=== PATIENT | male | born 1960 | race American Indian/Alaskan Native ===

== ENCOUNTER → 2018-07-29 08:07 | Outpatient (CLI) | payer OTHER, SELFPAY ==
[2018-07-29 09:13] LABS: Add Manual Diff / Slide Review NO; Basophils Percent Auto 0.6 % (0-2); Eosinophils Percent Auto 3.7 % (2-4); Hematocrit 44.8 % (41-53); Hemoglobin 15.4 g/dL (13.5-17.5); Lymphocytes Percent Auto 37.3 % (25-40); Mean Corpuscular HGB Conc 34.3 % (30-36); Mean Corpuscular Hemoglobin 31.7 PG (26-34); Mean Corpuscular Volume 92.3 fL (80-100); Monocytes Percent Auto 6.8 % (3-14); Neutrophils Absolute Auto 3300 /uL (3000-5900); Neutrophils Percent Auto 51.6 % (50-75); Platelet Count 278 X10^3/uL (150-400); Red Blood Cell Count 4.85 X10^6/uL (4.5-5.9); Red Cell Distribution Width 12.8 % (11.6-14.8); White Blood Cell Count 6.5 X10^3/uL (4.5-11.0)
[2018-07-29 09:15] LABS: Hemoglobin A1C% w Est Avg Glu 5.5 % (4.0-6.0)
[2018-07-29 09:21] LABS: Alanine Aminotransferase 46 IU/L (21-72); Albumin 4.3 g/dL (3.5-5.0); Albumin Globulin Ratio 1.9 (1.0-2.8); Alkaline Phosphatase 31 U/L (38-126); Aspartate Aminotransferase 37 IU/L (17-59); BUN Creatinine Ratio 21.3 (6-22); Bilirubin Total 1.1 mg/dL (0.2-1.3); Blood Urea Nitrogen 17 mg/dL (9-20); Calcium 9.2 mg/dL (8.4-10.2); Carbon Dioxide 31 mmol/L (22-32); Chloride 105 mmol/L (98-107); Cholesterol 148 mg/dL (140-199); Estimated Glomerular Filt Rate > 60.0 mL/min (>60); Globulin 2.3 g/dL (1.7-4.1); Glucose 113 mg/dL (70-100); HDL Cholesterol 42 mg/dL (40-60); HEMOLYSIS < 15 (0-50); LDL Cholesterol Calculated 75 mg/dL (<100); Potassium 4.9 mmol/L (3.4-5.1); Sodium 145 mmol/L (137-145); Total Protein 6.6 g/dL (6.3-8.2); Triglycerides 155 mg/dL (35-150)
[2018-07-29 09:48] LABS: Prostate Specific Antigen 0.409 ng/mL (0.10-4.00)
[2018-07-29 09:52] LABS: Thyroid Stimulating Hormone 0.87 uIU/mL (0.47-4.68)
[2018-07-29 10:17] LABS: Creatinine Urine Random 94.2 mg/dL
[2018-07-29 10:55] LABS: Microalbumi Creatinin Ratio Ur 6.3 ug/mg CR (<30); Microalbumin Urine Random < 0.6 mg/dL (0-1.6)
== END ==
PROVIDERS: PCP Family Medicine; Visit Provider Family Medicine
DX: I10 Essential (primary) hypertension (principal); E11.9 Type 2 diabetes mellitus without complications; Z51.81 Encounter for therapeutic drug level monitoring; Z12.5 Encounter for screening for malignant neoplasm of prostate
CPT/HCPCS: 36415; 80053; 80061; 82043; 82570; 83036; 84153; 84443; 85025

== ENCOUNTER → 2018-10-16 10:35 | Outpatient (CLI) | payer OTHER, SELFPAY ==
[2018-10-16 11:24] LABS: Hemoglobin A1C% w Est Avg Glu 5.8 % (4.0-6.0)
[2018-10-16 11:25] LABS: Alanine Aminotransferase 48 IU/L (21-72); Albumin 4.9 g/dL (3.5-5.0); Albumin Globulin Ratio 1.7 (1.0-2.8); Alkaline Phosphatase 37 U/L (38-126); Aspartate Aminotransferase 36 IU/L (17-59); BUN Creatinine Ratio 21.3 (6-22); Bilirubin Total 1.4 mg/dL (0.2-1.3); Blood Urea Nitrogen 17 mg/dL (9-20); Calcium 9.6 mg/dL (8.4-10.2); Carbon Dioxide 26 mmol/L (22-32); Chloride 103 mmol/L (98-107); Estimated Glomerular Filt Rate > 60.0 mL/min (>60); Globulin 2.9 g/dL (1.7-4.1); Glucose 102 mg/dL (70-100); HEMOLYSIS 23 (0-50); Potassium 4.8 mmol/L (3.4-5.1); Sodium 142 mmol/L (137-145); Total Protein 7.8 g/dL (6.3-8.2)
[2018-10-16 12:27] LABS: Folate > 20.0 ng/mL (2.76-20.0); Vitamin B12 557 pg/mL (239-931)
== END ==
PROVIDERS: PCP Family Medicine; Visit Provider Family Medicine
DX: G62.9 Polyneuropathy, unspecified (principal); E11.9 Type 2 diabetes mellitus without complications
CPT/HCPCS: 36415; 80053; 82607; 82746; 83036

== ENCOUNTER 2018-12-05 13:46 | Emergency (ER) | payer OTHER, SELFPAY ==
[2018-12-05 14:07] VITALS: BP 120/71; PULSE 76; RESP 14; TEMP 36.7; O2SAT 97; BMI 29.9
[2018-12-05 15:59] LABS: Add Manual Diff / Slide Review NO; Basophils Absolute Auto 100 /uL (0-100); Basophils Percent Auto 1.1 % (0-2); Eosinophils Absolute Auto 200 /uL (0-450); Eosinophils Percent Auto 2.6 % (2-4); Hemoglobin 14.9 g/dL (13.5-17.5); Lymphocytes Absolute Auto 2700 /uL (1100-4500); Lymphocytes Percent Auto 31.8 % (25-40); Mean Corpuscular HGB Conc 33.8 % (30-36); Mean Corpuscular Hemoglobin 31.1 PG (26-34); Mean Corpuscular Volume 92.1 fL (80-100); Monocytes Absolute Auto 800 /uL (0-900); Monocytes Percent Auto 8.9 % (3-14); Neutrophils Absolute Auto 4700 /uL (1500-7000); Neutrophils Percent Auto 55.6 % (50-75); Platelet Count 289 X10^3/uL (150-400); Red Blood Cell Count 4.78 X10^6/uL (4.5-5.9); Red Cell Distribution Width 12.5 % (11.6-14.8); White Blood Cell Count 8.4 X10^3/uL (4.5-11.0)
[2018-12-05 16:11] LABS: INR 0.9 (0.9-1.3); Prothrombin Time 10.8 SECONDS (10.1-12.7)
[2018-12-05 16:14] LABS: PTT Partial Thromboplastin Tim 31 SECONDS (26.4-36.2)
[2018-12-05 16:16] LABS: Alanine Aminotransferase 53 IU/L (21-72); Albumin 4.7 g/dL (3.5-5.0); Albumin Globulin Ratio 1.8 (1.0-2.8); Alkaline Phosphatase 31 U/L (38-126); Aspartate Aminotransferase 47 IU/L (17-59); BUN Creatinine Ratio 26.3 (6-22); Blood Urea Nitrogen 21 mg/dL (9-20); Calcium 9.4 mg/dL (8.4-10.2); Carbon Dioxide 26 mmol/L (22-32); Chloride 105 mmol/L (98-107); Estimated Glomerular Filt Rate > 60.0 mL/min (>60); Globulin 2.6 g/dL (1.7-4.1); Glucose 100 mg/dL (70-100); HEMOLYSIS 35 (0-50); Lipase 75 U/L (23-300); Potassium 4.2 mmol/L (3.4-5.1); Sodium 141 mmol/L (137-145); Total Protein 7.3 g/dL (6.3-8.2)
--- NOTE | 2018-12-05 16:52 | ED.ABDPAIN ---
HPI - Abdominal Pain <JUAN ALBERTO Antonio - Last Filed: 12/05/18 21:59> General Chief Complaint: Abdominal Pain Stated Complaint: stomach hurts Time Seen by Provider: 12/05/18 17:10 Source: patient Mode of arrival: ambulatory Limitations: no limitations History of Present Illness HPI narrative: 58-year-old male with history of type 2 diabetes that is an everyday smoker here for complaint of pain to his left lower quadrant abdominal area that started earlier today. He denies any trauma to the area. No fevers no chills. Last bowel movement was earlier today was unremarkable. He denies any urinary symptoms. No nausea or vomiting. No fevers no chills. He denies any stressors relievers of his pain. Last p.o. intake was earlier today. He does report positive flatus. MD complaint: abdominal pain Related Data Home Medications Medication Instructions Recorded Confirmed omega 9-imx-air-fish oil [Fish Oil] 1,000 mg PO DAILY #0 05/21/11 12/05/18 aspirin 81 mg tablet,delayed 81 mg PO DAILY 10/16/18 12/05/18 release magnesium 64 mg (magnesium 64 mg PO DAILY tab 10/16/18 12/05/18 chloride) tablet,delayed release multivitamin tablet 1 tab PO DAILY 10/16/18 12/05/18 losartan [Cozaar] 50 mg PO DAILY 12/05/18 12/05/18 Previous Rx's Medication Instructions Recorded tadalafil [Cialis] 20 mg PO SEE INSTRUCTIONS #6 tab 01/17/18 metformin [Glucophage] 850 mg PO BIDCC #180 tab 06/22/18 diphth,pertus(acel)tetanus(PF)2Lf-(2.5-5-3-5mcg)-5 0.5 ml IM ONCE #0.5 ml 10/16/18 Lf/0.5 mL IM susp Allergies Allergy/AdvReac Type Severity Reaction Status Date / Time No Known Drug Allergies Allergy Verified 12/05/18 14:06 Review of Systems <JUAN ALBERTO Antonio - Last Filed: 12/05/18 21:59> Constitutional Denies chills, Denies fever(s), Denies lethargy and Denies weakness Eyes Denies change in vision, Denies eye discharge, Denies irritation and Denies loss of vision ENT Ears, Nose, Mouth, and Throat: Denies change in voice, Denies neck pain and Denies sore throat Cardiovascular Denies chest pain, Denies irregular heart rhythm, Denies lightheadedness, Denies palpitations, Denies dyspnea, Denies dyspnea on exertion and Denies orthopnea Respiratory Denies cough, Denies dyspnea, Denies dyspnea on exertion and Denies wheezing Gastrointestinal Comments: Left lower quadrant pain that started earlier today Genitourinary Denies hematuria, Denies flank pain, Denies urinary incontinence and Denies urinary urgency Musculoskeletal Denies neck pain Integumentary/Breasts Denies pruritus, Denies erythema, Denies rash and Denies wounds Neurologic Denies confusion, Denies loss of vision and Denies weakness Psychiatric Denies anxiety, Denies confusion, Denies depression, Denies homicidal ideation and Denies suicidal ideation Endocrine Denies palpitations Hematologic/Lymphatic Denies easy bruising Allergic/Immunologic Denies wheezing Exam <JUAN ALBERTO Antonio - Last Filed: 12/05/18 21:59> Initial Vital Signs Initial Vital Signs: Vital Signs Temperature 98.1 F 12/05/18 14:07 Pulse Rate 76 12/05/18 14:07 Respiratory Rate 14 12/05/18 14:07 Blood Pressure 120/71 12/05/18 14:07 Pulse Oximetry 97 12/05/18 14:07 Const General: cooperative and well developed Nutritional Appearance: well nourished Orientation: alert, awake, oriented x3 and not confused [facility] Mouth: oral mucosae normal and moist mucous membranes Eyes Conjunctivae: conjunctivae normal Sclera: sclerae normal Pupils: PERRL EOM: EOM intact bilaterally Resp Effort & Inspection: normal respiratory effort, able to speak in complete sentences, no respiratory distress and no use of accessory muscles Auscultation: clear to auscultation bilaterally, no rales, no rhonchi and no wheezes Cardio Rate: regular rate Rhythm: regular rhythm Heart Sounds: no click, no gallops, no murmurs and no rubs Pulses: normal peripheral pulses GI Inspection: non-distended Palpation: soft, no hepatosplenomegaly, No guarding, No pulsatile mass and tender (Tenderness left lower quadrant) Auscultation: normal bowel sounds General: No CVA tenderness Skin General: no rashes or lesions noted, No jaundice and No petechiae Neuro General: alert, oriented x3, gait normal and no focal motor deficits Speech: speech normal <Leandro Mccray DO - Last Filed: 12/05/18 22:07> Initial Vital Signs Initial Vital Signs: Vital Signs Temperature 98.1 F 12/05/18 14:07 Pulse Rate 76 12/05/18 14:07 Respiratory Rate 14 12/05/18 14:07 Blood Pressure 120/71 12/05/18 14:07 Pulse Oximetry 97 12/05/18 14:07 Course <JUAN ALBERTO Antonio - Last Filed: 12/05/18 21:59> Orders Ordered: ED Orders 12/05/18 15:47 Complete Blood Count AUTO DIFF Stat Comprehensive Metabolic Panel Stat Lipase Stat Partial Thromboplastin Time Stat Prothrombin Time INR Stat 12/05/18 17:15 CT abdomen pelvis w con Stat 12/05/18 17:30 EKG-12 Lead Stat Discontinued Medications Sodium Chloride (Normal Saline 0.9%) 1,000 mls @ 1,000 mls/hr IV BOLUS ONE Stop: 12/05/18 18:14 Last Infusion: 12/05/18 19:26 Dose: 0 mls/hr Admin: 12/05/18 18:50 Dose: 1,000 mls/hr Vital Signs - 8 hr 12/05/18 17:00 12/05/18 18:24 Pulse Rate 58 L 56 L Respiratory Rate 17 Blood Pressure [Left Arm] 115/66 110/69 Pulse Oximetry 97 98 <Leandro Mccray DO - Last Filed: 12/05/18 22:07> Orders Ordered: ED Orders 12/05/18 15:47 Complete Blood Count AUTO DIFF Stat Comprehensive Metabolic Panel Stat Lipase Stat Partial Thromboplastin Time Stat Prothrombin Time INR Stat 12/05/18 17:15 CT abdomen pelvis w con Stat 12/05/18 17:30 EKG-12 Lead Stat Discontinued Medications Sodium Chloride (Normal Saline 0.9%) 1,000 mls @ 1,000 mls/hr IV BOLUS ONE Stop: 12/05/18 18:14 Last Infusion: 12/05/18 19:26 Dose: 0 mls/hr Admin: 12/05/18 18:50 Dose: 1,000 mls/hr Vital Signs - 8 hr 12/05/18 17:00 12/05/18 18:24 Pulse Rate 58 L 56 L Respiratory Rate 17 Blood Pressure [Left Arm] 115/66 110/69 Pulse Oximetry 97 98 MDM - Abdominal Pain <JUAN ALBERTO Antonio - Last Filed: 12/05/18 21:59> Lab Data Result diagrams: 12/05/18 15:47 12/05/18 15:47 Lab Results 12/05/18 12/05/18 12/05/18 Range/Units 15:47 15:47 15:47 WBC 8.4 (4.5-11.0) X10^3/uL RBC 4.78 (4.5-5.9) X10^6/uL Hgb 14.9 (13.5-17.5) g/dL Hct 44.0 (41-53) % MCV 92.1 (80-100) fL MCH 31.1 (26-34) PG MCHC 33.8 (30-36) % RDW 12.5 (11.6-14.8) % Plt Count 289 (150-400) X10^3/uL Neut % (Auto) 55.6 (50-75) % Lymph % (Auto) 31.8 (25-40) % [place] % (Auto) 8.9 (3-14) % Eos % (Auto) 2.6 (2-4) % Baso % (Auto) 1.1 (0-2) % Neut # (Auto) 4700 (7328-0662) /uL Lymph # (Auto) 2700 (4820-2101) /uL [place] # (Auto) 800 (0-900) /uL Eos # (Auto) 200 (0-450) /uL Baso # (Auto) 100 (0-100) /uL PT 10.8 (10.1-12.7) SECONDS INR 0.9 (0.9-1.3) APTT 31 (26.4-36.2) SECONDS Sodium 141 (137-145) mmol/L Potassium 4.2 (3.4-5.1) mmol/L Chloride 105 (98-107) mmol/L Carbon Dioxide 26 (22-32) mmol/L BUN 21 H (9-20) mg/dL Creatinine 0.80 (0.66-1.25) mg/dL Estimated GFR > 60.0 (>60) mL/min BUN/Creatinine Ratio 26.3 H (6-22) Glucose 100 (70-100) mg/dL Calcium 9.4 (8.4-10.2) mg/dL Total Bilirubin 1.0 (0.2-1.3) mg/dL AST 47 (17-59) IU/L ALT 53 (21-72) IU/L Alkaline Phosphatase 31 L (38-126) U/L Total Protein 7.3 (6.3-8.2) g/dL Albumin 4.7 (3.5-5.0) g/dL Globulin 2.6 (1.7-4.1) g/dL Albumin/Globulin Ratio 1.8 (1.0-2.8) Lipase 75 (23-300) U/L Point of care testing: Urine Dip Bedside Urine Glucose Negative Bedside Urine Bilirubin - Negative Bedside Urine Ketone - Negative Urine Specific [place] 1.015 Bedside Urine Occult Blood - Negative Bedside Urine pH 6.0 Bedside Urine Protein - Negative Bedside Urine Urobilinogen - Negative Bedside Urine Nitrite - Negative Bedside Urine Leukocytes - Negative Esterase Imaging Data CT scan - abdomen: Radiologist's impression: [place] [address] CT Scan Report Signed Patient: Jalil Figueroa MR#: [id number] : 1960 Acct:[id number] Age/Sex: 58 / M Date of Service: 12/05/18 Loc: ED Accession Number: [id number] Procedure: CT abdomen pelvis w con Ordering Provider: Fernando Hutson PROCEDURE: CT ABDOMEN PELVIS W CON INDICATIONS: Left lower quadrant and flank pain TECHNIQUE: After the administration of oral and intravenous contrast, 5 mm thick sections acquired from the diaphragms to the symphysis. 5 mm thick coronal and sagittal reformats were performed. For radiation dose reduction, the following was used: automated exposure control, adjustment of mA and/or kV according to patient size. COMPARISON: None. FINDINGS: Image quality: Excellent. ABDOMEN: Lung bases: Lung bases are clear. Heart size is normal. There is mild concentric wall thickening of the visualized distal esophagus. Solid organs: There is diffuse hypoattenuation of the liver compatible with fatty infiltration. Gallbladder appears within normal limits without calcified gallstones. Biliary system is non-dilated. Pancreas enhances normally. Spleen is normal in size and enhancement. No adrenal nodules. Kidneys demonstrate no hydronephrosis. There is mild perinephric stranding bilaterally. Peritoneum and bowel: Stomach, small bowel, and colon loops are normal in caliber and wall thickness. The appendix is normal in appearance. There is chronic diverticulosis in the transverse, descending, and sigmoid colon without evidence of acute diverticulitis. Mild segmental wall thickening in the sigmoid colon may reflect a mild colitis or nondistention. No free fluid or air. Nodes and vessels: No retroperitoneal or mesenteric adenopathy. Aorta and inferior vena cava are normal in caliber. Miscellaneous: No ventral hernias. PELVIS: Genitourinary: Bladder wall thickness is normal. Miscellaneous: No inguinal hernias or adenopathy. Bones: No suspicious bony lesions. No vertebral body compression fractures. IMPRESSION: 1. Mild segmental wall thickening in the sigmoid colon may reflect a mild infectious or inflammatory colitis or nondistention. 2. Colonic diverticulosis without acute diverticulitis. 3. Hepatic steatosis. Dictated by: Nahid Delcid M.D. on 12/05/2018 at 18:06 Approved by: Nahid Delcid M.D. on 12/05/2018 at 18:09 [facility] Narrative Medical decision making narrative: CBC and Chem panel were obtained and were unremarkable. Lipase was negative. CT scan of the abdomen was obtained and shows some mild wall thickening of the sigmoid colon which may be inflammatory or infectious. Will treat conservatively for now as viral illness. [id number] Tylenol or Motrin as needed for discomfort. Plenty of fluids. Follow up with primary care provider next week for re-evaluation. For any worsening symptoms return to the emergency room. <Leandro Mccray DO - Last Filed: 12/05/18 22:07> Lab Data Lab Results 12/05/18 12/05/18 12/05/18 Range/Units 15:47 15:47 15:47 WBC 8.4 (4.5-11.0) X10^3/uL RBC 4.78 (4.5-5.9) X10^6/uL Hgb 14.9 (13.5-17.5) g/dL Hct 44.0 (41-53) % MCV 92.1 (80-100) fL MCH 31.1 (26-34) PG MCHC 33.8 (30-36) % RDW 12.5 (11.6-14.8) % Plt Count 289 (150-400) X10^3/uL Neut % (Auto) 55.6 (50-75) % Lymph % (Auto) 31.8 (25-40) % [place] % (Auto) 8.9 (3-14) % Eos % (Auto) 2.6 (2-4) % Baso % (Auto) 1.1 (0-2) % Neut # (Auto) 4700 (1323-4369) /uL Lymph # (Auto) 2700 (4264-9346) /uL [place] # (Auto) 800 (0-900) /uL Eos # (Auto) 200 (0-450) /uL Baso # (Auto) 100 (0-100) /uL PT 10.8 (10.1-12.7) SECONDS INR 0.9 (0.9-1.3) APTT 31 (26.4-36.2) SECONDS Sodium 141 (137-145) mmol/L Potassium 4.2 (3.4-5.1) mmol/L Chloride 105 (98-107) mmol/L Carbon Dioxide 26 (22-32) mmol/L BUN 21 H (9-20) mg/dL Creatinine 0.80 (0.66-1.25) mg/dL Estimated GFR > 60.0 (>60) mL/min BUN/Creatinine Ratio 26.3 H (6-22) Glucose 100 (70-100) mg/dL Calcium 9.4 (8.4-10.2) mg/dL Total Bilirubin 1.0 (0.2-1.3) mg/dL AST 47 (17-59) IU/L ALT 53 (21-72) IU/L Alkaline Phosphatase 31 L (38-126) U/L Total Protein 7.3 (6.3-8.2) g/dL Albumin 4.7 (3.5-5.0) g/dL Globulin 2.6 (1.7-4.1) g/dL Albumin/Globulin Ratio 1.8 (1.0-2.8) Lipase 75 (23-300) U/L Point of care testing: Urine Dip Bedside Urine Glucose Negative Bedside Urine Bilirubin - Negative Bedside Urine Ketone - Negative Urine Specific [place] 1.015 Bedside Urine Occult Blood - Negative Bedside Urine pH 6.0 Bedside Urine Protein - Negative Bedside Urine Urobilinogen - Negative Bedside Urine Nitrite - Negative Bedside Urine Leukocytes - Negative Esterase Discharge Plan Departure Patient Disposition: Home Clinical Impression: Abdominal pain Discharge Date/Time: 12/05/18 19:27 Interventions: ED Discharge Assessment Last Done: 12/05/18 19:27 Instructions: DI for Abdominal Pain-Adult Activity Restrictions/Additional Instructions: Laboratory results today were unremarkable. CT of the abdomen shows some mild thickening of the distal colon and presents as a viral illness. Viral illnesses normally resolve on their own with time. Use [id number] Tylenol or Motrin as needed for any discomfort. Plenty of fluids and rest. Follow up with her primary care provider next week for re-evaluation. If any worsening symptoms return to the emergency room. Prescriptions: No Action multivitamin tablet 1 tab PO DAILY RF: 0 aspirin [Adult Aspirin Regimen] 81 mg tablet,delayed release (DR/EC) 81 mg PO DAILY RF: 0 magnesium chloride 64 mg tablet,delayed release (DR/EC) 64 mg PO DAILY RF: 0 diph,pertuss(acel),tet vac(PF) [Adacel(Tdap Adolesn/Adult)(PF)] 2 Lf-(2.5-5-3-5 mcg)-5Lf/0.5 mL suspension 0.5 ml IM ONCE Qty: 0.5 RF: 0 omega 0-saf-uik-fish oil [Fish Oil] 1,000 mg (120 mg-180 mg) Capsule 1,000 mg PO DAILY Qty: 0 RF: 0 tadalafil [Cialis] 20 MG tablet 20 mg PO SEE INSTRUCTIONS Qty: 6 RF: 5 metformin [Glucophage] 850 mg tablet 850 mg PO BIDCC Qty: 180 RF: 1 losartan [Cozaar] 50 mg tablet 50 mg PO DAILY RF: 0 Referrals: Lisa Dow DO [Primary Care Provider] - <Leandro Mccray DO - Last Filed: 12/05/18 22:07> Cosign ED Attending Nyla Attestation: I was available for consultation during this patient's emergency department encounter
[2018-12-05 17:00] VITALS: BP 115/66; PULSE 58; O2SAT 97
--- NOTE | 2018-12-05 17:15 | DI.CT.S_ITS ---
PROCEDURE: CT ABDOMEN PELVIS W CON INDICATIONS: Left lower quadrant and flank pain TECHNIQUE: After the administration of oral and intravenous contrast, 5 mm thick sections acquired from the diaphragms to the symphysis. 5 mm thick coronal and sagittal reformats were performed. For radiation dose reduction, the following was used: automated exposure control, adjustment of mA and/or kV according to patient size. COMPARISON: None. FINDINGS: Image quality: Excellent. ABDOMEN: Lung bases: Lung bases are clear. Heart size is normal. There is mild concentric wall thickening of the visualized distal esophagus. Solid organs: There is diffuse hypoattenuation of the liver compatible with fatty infiltration. Gallbladder appears within normal limits without calcified gallstones. Biliary system is non-dilated. Pancreas enhances normally. Spleen is normal in size and enhancement. No adrenal nodules. Kidneys demonstrate no hydronephrosis. There is mild perinephric stranding bilaterally. Peritoneum and bowel: Stomach, small bowel, and colon loops are normal in caliber and wall thickness. The appendix is normal in appearance. There is chronic diverticulosis in the transverse, descending, and sigmoid colon without evidence of acute diverticulitis. Mild segmental wall thickening in the sigmoid colon may reflect a mild colitis or nondistention. No free fluid or air. Nodes and vessels: No retroperitoneal or mesenteric adenopathy. Aorta and inferior vena cava are normal in caliber. Miscellaneous: No ventral hernias. PELVIS: Genitourinary: Bladder wall thickness is normal. Miscellaneous: No inguinal hernias or adenopathy. Bones: No suspicious bony lesions. No vertebral body compression fractures. IMPRESSION: 1. Mild segmental wall thickening in the sigmoid colon may reflect a mild infectious or inflammatory colitis or nondistention. 2. Colonic diverticulosis without acute diverticulitis. 3. Hepatic steatosis. Dictated by: Nahid Delcid M.D. on 12/05/2018 at 18:06 Approved by: Nahid Delcid M.D. on 12/05/2018 at 18:09
[2018-12-05 18:24] VITALS: BP 110/69; PULSE 56; RESP 17; O2SAT 98
[2018-12-05] MEDS: SODIUM CHLORIDE 0.9% 1,000 ML 1000 ML IV (18:50)
== END 2018-12-05 19:27 | disposition home or self-care (01) ==
PROVIDERS: Emergency Medicine; Emergency Provider Nurse Practitioner Family; PCP Family Medicine
DX: R10.9 Unspecified abdominal pain (principal)
CPT/HCPCS: 36591; 74177; 80053; 81003; 83690; 85025; 85610; 85730; 93005; 93010; 96360; 99283; 99285; Q9967

== ENCOUNTER 2019-04-27 12:47 | Day surgery (SDC) | payer OTHER, SELFPAY ==
--- NOTE | 2019-04-27 | PATH_ITS ---
[facility] Accession Number: [id number] . 01 Material submitted: . colon - POLYP BIOPSY AT 30 CM X2 . 02 Diagnosis: Biopsy, Polyps at 30 cm: Single polypoid-shaped fragment of colon mucosa associated with chronic mucosal lymphoid aggregate. Superficial fragments of colon mucosa consistent with hyperplastic polyp. MRV/04/30/2019 . 02 Electronically signed: . Ward Lancaster MD, Pathologist NPI- [id number] . 01 Gross description: . POLYP BIOPSY AT 30 CM X2: Received in formalin are 3 fragment(s) of dunham, soft tissue measuring 0.1 x 0.1 x 0.1 cm to 0.3 x 0.2 x 0.2 cm which is entirely submitted and submitted entirely in 1 cassette(s) /DMC /DMC . 02 Pathologist provided ICD-10: K63.5 . 02 CPT . 552433 Performed at: 01 [facility] [address], [place], [place] [id number] MD Nahid Jamil MD Phone: [phone] Performed at: 02 [facility] [address] [place], [place] [id number] MD Azucena Lewis MD Phone: [phone]
[2019-04-27 13:12] VITALS: BP 132/81; PULSE 73; RESP 15; TEMP 36.4; O2SAT 97; BMI 28.4
--- NOTE | 2019-04-27 14:05 | PM.HP.1 ---
History of Present Illness Date Patient Seen: 04/27/19 Time Patient Seen: 14:05 Chief complaint: [id number] Narrative: Patient is here for screening colonoscopy does have a history of polyps in previous exams he is asymptomatic Patient History Surgical History Status post colonoscopy Family History (Updated 09/10/15 @ 00:00 by Conversion Provider) Father Age: 89 Type II diabetes mellitus Social History household members: none Smoking Status: Current every day smoker Tobacco: How many years used: 30 alcohol intake: never Family & Social History Family History Father Age: 89 Type II diabetes mellitus Social History: household members none Tobacco & Substance use: Smoking Status Current every day smoker alcohol intake never alcohol intake frequency 0-2 drinks per day Substance Use Type does not use Meds Home Medications Medication Instructions Recorded Confirmed Type omega 2-nta-ziw-fish oil [Fish Oil] 1,000 mg PO DAILY #0 05/21/11 04/27/19 History tadalafil [Cialis] 20 mg PO SEE INSTRUCTIONS #6 tab 01/17/18 04/27/19 Rx aspirin 81 mg tablet,delayed 81 mg PO DAILY 10/16/18 04/27/19 History release diphth,pertus(acel)tetanus(PF)2Lf-(2.5-5-3-5mcg)-5 0.5 ml IM ONCE #0.5 ml 10/16/18 04/27/19 Rx Lf/0.5 mL IM susp magnesium 64 mg (magnesium 64 mg PO DAILY tab 10/16/18 04/27/19 History chloride) tablet,delayed release multivitamin tablet 1 tab PO DAILY 10/16/18 04/27/19 History metformin 850 mg tablet 850 mg PO BIDCC #180 tab 03/20/19 04/27/19 Rx losartan 50 mg tablet 50 mg PO DAILY #30 tab 04/17/19 04/27/19 Rx Allergies Allergy/AdvReac Type Severity Reaction Status Date / Time No Known Drug Allergies Allergy Verified 04/27/19 13:04 Review of Systems Review of Systems All systems reviewed & are unremarkable except as noted in HPI and below Exam Vital Signs (past 8 hours): - 04/27/19 13:12 Temperature 97.6 F Pulse Rate 73 Respiratory Rate 15 Blood Pressure 132/81 Pulse Oximetry 97 Oxygen Delivery Method Room Air Narrative Exam Narrative: Patient is alert and oriented. Vital signs are stable. Lungs are clear with no rales or wheezes Heart regular rhythm no murmur Abdomen soft nontender no masses Rectal we done at time of colonoscopy Assessment & Plan Assessment & Plan narrative: Patient is here for screening colonoscopy he is asymptomatic. He has had polyps on prior colonoscopies. Patient understands procedure agrees and has no questions
[2019-04-27 14:33] VITALS: BP 123/80; PULSE 62; RESP 12; TEMP 36.4; O2SAT 95
[2019-04-27] MEDS: MIDAZOLAM 5 MG/5 ML VIAL IV (14:33)
--- NOTE | 2019-04-27 14:33 | PM.OP.ENDO ---
Operative Date/Time/Diagnoses Date of procedure: 04/27/19 Time of procedure: 14:34 Pre-op diagnosis: Screening colonoscopy Post-op diagnosis: other (Patient had 2 hyperplastic polyps at 30 cm these were removed with cold forceps polyps were approximately 5 mm in diameter) Procedure & Clinicians Study performed: Total colonoscopy to the cecum with polypectomy x2 with 30 cm Same procedure as scheduled: Yes Indications: History of polyps this was screening with polypectomy Surgeon: Kenyon Shah Procedure Notes SCOAP/Timeout: Was done Procedure in detail: Patient was properly identified during surgical pause throughout the procedure he was given a total of 4 mg of Versed and 200 micro g of fentanyl the flexible fiberoptic colonoscope was inserted transanally to the cecum upon withdrawing the scope identified to 5 mm polyps at 30 cm these appear to be hyperplastic polyps. These were both removed with cold forceps and sent for histology. No other abnormalities were seen. Procedure was well tolerated Scope withdrawal time: 10 Sedation minutes: 22 Findings: polyp and possible cancer Specimen(s): other Complications: none Impression: Likely hyperplastic polyps at 30 cm. These were removed Recommendations: Colonscopy in 5 years Follow up: as needed Disposition: PACU
[2019-04-27] MEDS: fentaNYL 250 MCG/5 ML INJ IV (14:34)
[2019-04-27 14:38] VITALS: BP 109/74; PULSE 69; RESP 15; O2SAT 94
[2019-04-27 14:43] VITALS: BP 119/79; PULSE 61; RESP 12; O2SAT 98
[2019-04-27 14:59] VITALS: BP 120/78; PULSE 63; RESP 15; TEMP 36.6; O2SAT 94
== END 2019-04-27 15:21 | disposition home or self-care (01) ==
PROVIDERS: PCP Family Medicine; Visit Provider Surgery
PROC: 0DJD8ZZ Inspection of Lower Intestinal Tract, Via Natural or Artificial Opening Endoscopic (ICD-10-PCS; CPT 45378; principal; 2019-04-27 14:30)
DX: Z86.010 Personal history of colon polyps (principal); K63.5 Polyp of colon; F17.210 Nicotine dependence, cigarettes, uncomplicated
CPT/HCPCS: 45380; 99152; J2250; J3010

== ENCOUNTER → 2019-05-22 08:00 | Outpatient (CLI) | payer OTHER, SELFPAY ==
[2019-05-22 09:14] LABS: Hemoglobin A1C% w Est Avg Glu 5.4 % (4.0-6.0)
[2019-05-22 09:47] LABS: Alanine Aminotransferase 34 IU/L (21-72); Albumin 4.4 g/dL (3.5-5.0); Albumin Globulin Ratio 1.7 (1.0-2.8); Alkaline Phosphatase 36 U/L (38-126); Aspartate Aminotransferase 30 IU/L (17-59); Bilirubin Total 1.3 mg/dL (0.2-1.3); Blood Urea Nitrogen 20 mg/dL (9-20); Calcium 9.5 mg/dL (8.4-10.2); Carbon Dioxide 25 mmol/L (22-32); Chloride 104 mmol/L (98-107); Estimated Glomerular Filt Rate > 60.0 mL/min (>60); Globulin 2.6 g/dL (1.7-4.1); Glucose 109 mg/dL (70-100); HEMOLYSIS < 15 (0-50); Potassium 4.1 mmol/L (3.4-5.1); Sodium 139 mmol/L (137-145)
== END ==
PROVIDERS: PCP Family Medicine; Visit Provider Family Medicine
DX: E11.9 Type 2 diabetes mellitus without complications (principal)
CPT/HCPCS: 36415; 80053; 83036

== ENCOUNTER → 2020-01-09 16:37 | Outpatient (CLI) | payer OTHER, SELFPAY ==
[2020-01-09 17:49] LABS: Creatinine Urine Random 80.2 mg/dL
[2020-01-09 17:50] LABS: Hemoglobin A1C% w Est Avg Glu 5.4 % (4.0-6.0)
[2020-01-09 17:55] LABS: Microalbumi Creatinin Ratio Ur 7.4 ug/mg CR (<30); Microalbumin Urine Random < 0.6 mg/dL (0-1.6)
[2020-01-09 18:00] LABS: Alanine Aminotransferase 39 IU/L (<50); Alkaline Phosphatase 43 U/L (38-126); Aspartate Aminotransferase 38 IU/L (17-59); Bilirubin Total 0.9 mg/dL (0.2-1.3); Blood Urea Nitrogen 24 mg/dL (9-20); Calcium 10.4 mg/dL (8.4-10.2); Carbon Dioxide 25 mmol/L (22-32); Chloride 102 mmol/L (98-107); Estimated Glomerular Filt Rate > 60.0 mL/min (>60); Globulin 2.5 g/dL (1.7-4.1); Glucose 94 mg/dL (70-100); HEMOLYSIS < 15 (0-50); Potassium 4.2 mmol/L (3.4-5.1); Sodium 139 mmol/L (137-145); Total Protein 7.5 g/dL (6.3-8.2)
[2020-01-09 18:16] LABS: Thyroid Stimulating Hormone 2.42 uIU/mL (0.47-4.68)
[2020-01-09 18:31] LABS: Prostate Specific Antigen Scrn 0.546 ng/mL (0.1-4.0)
== END ==
PROVIDERS: PCP Student in an Organized Health Care Education/Training Program; Referring Provider Family Medicine; Visit Provider Family Medicine
DX: Z12.5 Encounter for screening for malignant neoplasm of prostate (principal); E11.9 Type 2 diabetes mellitus without complications; I10 Essential (primary) hypertension
CPT/HCPCS: 36415; 80053; 82043; 82570; 83036; 84443; G0103

== ENCOUNTER → 2021-08-13 16:04 | Outpatient (CLI) | payer OTHER, SELFPAY ==
[2021-08-13 17:38] LABS: BUN Creatinine Ratio 21.3 (6-22); Blood Urea Nitrogen 16 mg/dL (9-20); Calcium 9.8 mg/dL (8.4-10.2); Carbon Dioxide 31 mmol/L (22-32); Chloride 103 mmol/L (98-107); Estimated Glomerular Filt Rate > 60.0 mL/min (>60); Glucose 98 mg/dL (70-100); HEMOLYSIS < 15 (0-50); Potassium 4.3 mmol/L (3.4-5.1); Sodium 139 mmol/L (137-145)
[2021-08-13 18:02] LABS: Creatinine Urine Random 74.9 mg/dL
[2021-08-13 18:06] LABS: Prostate Specific Antigen Scrn 0.505 ng/mL (0.1-4.0)
[2021-08-13 18:08] LABS: Microalbumin Urine Random < 0.6 mg/dL (0-1.6)
== END ==
PROVIDERS: PCP Student in an Organized Health Care Education/Training Program; Referring Provider Student in an Organized Health Care Education/Training Program; Visit Provider Student in an Organized Health Care Education/Training Program
DX: E11.9 Type 2 diabetes mellitus without complications (principal); I10 Essential (primary) hypertension; Z12.5 Encounter for screening for malignant neoplasm of prostate
CPT/HCPCS: 36415; 80048; 82043; 82570; 83036; G0103

== ENCOUNTER → 2021-09-13 11:02 | Outpatient (CLI) | payer OTHER, SELFPAY ==
[2021-09-14 08:31] LABS: COVID19 Sendout Not Detected (Not Detect)
== END ==
PROVIDERS: PCP Student in an Organized Health Care Education/Training Program; Referring Provider Nurse Practitioner Family; Visit Provider Nurse Practitioner Family
DX: Z20.822 Contact with and (suspected) exposure to COVID-19 (principal)
CPT/HCPCS: 87635

== ENCOUNTER → 2022-07-21 07:01 | Outpatient (CLI) | payer OTHER, SELFPAY ==
[2022-07-21 08:49] LABS: Hemoglobin A1C% w Est Avg Glu 6.3 % (4.0-6.0)
[2022-07-21 09:06] LABS: BUN Creatinine Ratio 28.2 (6-22); Blood Urea Nitrogen 22 mg/dL (9-20); Calcium 9.2 mg/dL (8.4-10.2); Carbon Dioxide 29 mmol/L (22-32); Chloride 102 mmol/L (98-107); Cholesterol 162 mg/dL (140-199); Estimated Glomerular Filt Rate > 60 mL/min (>60); Glucose 132 mg/dL (70-100); HDL Cholesterol 36 mg/dL (40-60); HEMOLYSIS 21 (0-50); LDL Cholesterol Calculated 88 mg/dL (<100); Potassium 4.2 mmol/L (3.4-5.1); Sodium 137 mmol/L (137-145); Triglycerides 189 mg/dL (35-150)
[2022-07-21 09:35] LABS: Prostate Specific Antigen Scrn 0.518 ng/mL (0.1-4.0)
[2022-07-21 10:34] LABS: Creatinine Urine Random 36.8 mg/dL
[2022-07-21 10:38] LABS: Microalbumin Urine Random < 0.6 mg/dL (0-1.6)
== END ==
PROVIDERS: PCP Student in an Organized Health Care Education/Training Program; Referring Provider Student in an Organized Health Care Education/Training Program; Visit Provider Student in an Organized Health Care Education/Training Program
DX: E11.9 Type 2 diabetes mellitus without complications (principal); I10 Essential (primary) hypertension; Z12.5 Encounter for screening for malignant neoplasm of prostate
CPT/HCPCS: 36415; 80048; 80061; 82043; 82570; 83036; G0103

== ENCOUNTER → 2023-02-25 09:57 | Outpatient (CLI) | payer OTHER, SELFPAY ==
[2023-02-26 06:09] LABS: Labcorp Hemoglobin (Hb) A1c 6.3 % (4.8-5.6)
== END ==
PROVIDERS: PCP Student in an Organized Health Care Education/Training Program; Referring Provider Student in an Organized Health Care Education/Training Program; Visit Provider Student in an Organized Health Care Education/Training Program
DX: E11.9 Type 2 diabetes mellitus without complications (principal)
CPT/HCPCS: 36415; 83036

== ENCOUNTER → 2024-01-21 07:46 | Outpatient (CLI) | payer OTHER, SELFPAY ==
[2024-01-21 08:25] LABS: Add Manual Diff / Slide Review NO; Basophils Absolute Auto 0 /uL (0-100); Basophils Percent Auto 0.2 % (0-2); Eosinophils Absolute Auto 100 /uL (0-450); Eosinophils Percent Auto 1.8 % (2-4); Hematocrit 44.3 % (41-53); Hemoglobin 15.6 g/dL (13.5-17.5); Lymphocytes Absolute Auto 2100 /uL (1100-4500); Lymphocytes Percent Auto 29.2 % (25-40); Mean Corpuscular HGB Conc 35.3 % (30-36); Mean Corpuscular Hemoglobin 31.8 PG (26-34); Monocytes Absolute Auto 700 /uL (0-900); Monocytes Percent Auto 9.5 % (3-14); Neutrophils Absolute Auto 4200 /uL (1500-7000); Neutrophils Percent Auto 59.3 % (50-75); Platelet Count 304 X10^3/uL (150-400); Red Blood Cell Count 4.92 X10^6/uL (4.5-5.9); Red Cell Distribution Width 12.8 % (11.6-14.8); White Blood Cell Count 7.1 X10^3/uL (4.5-11.0)
[2024-01-21 08:35] LABS: Alanine Aminotransferase 44 IU/L (<50); Albumin 4.1 g/dL (3.5-5.0); Albumin Globulin Ratio 1.6 (1.0-2.8); Alkaline Phosphatase 42 U/L (38-126); Aspartate Aminotransferase 38 IU/L (17-59); BUN Creatinine Ratio 30.4 (6-22); Bilirubin Total 1.3 mg/dL (0.2-1.3); Blood Urea Nitrogen 21 mg/dL (9-20); Calcium 9.4 mg/dL (8.4-10.2); Carbon Dioxide 27 mmol/L (22-32); Chloride 108 mmol/L (98-107); Cholesterol 177 mg/dL (140-199); Estimated Glomerular Filt Rate > 60 mL/min (>60); Globulin 2.5 g/dL (1.7-4.1); Glucose 135 mg/dL (80-110); HDL Cholesterol 38 mg/dL (40-60); HEMOLYSIS < 15 (0-50); LDL Cholesterol Calculated 92 mg/dL (<100); Sodium 140 mmol/L (137-145); Total Protein 6.6 g/dL (6.3-8.2); Triglycerides 236 mg/dL (35-150)
[2024-01-21 08:36] LABS: Hemoglobin A1C% w Est Avg Glu 6.5 % (4.0-6.0)
[2024-01-21 08:40] LABS: Creatinine Urine Random 187.1 mg/dL
[2024-01-21 08:45] LABS: Microalbumi Creatinin Ratio Ur 4.2 ug/mg CR (<30); Microalbumin Urine Random 0.8 mg/dL (0-1.6)
== END ==
LOC: LAB 07:48
PROVIDERS: PCP Family Medicine; Referring Provider Family Medicine; Visit Provider Family Medicine
DX: E11.9 Type 2 diabetes mellitus without complications (principal); I10 Essential (primary) hypertension
CPT/HCPCS: 36415; 80053; 80061; 82043; 82570; 83036; 85025

== ENCOUNTER → 2024-07-28 07:46 | Outpatient (CLI) | payer OTHER, SELFPAY ==
[2024-07-28 08:56] LABS: Hemoglobin A1C% w Est Avg Glu 6.5 % (4.0-6.0)
[2024-07-28 09:08] LABS: BUN Creatinine Ratio 19.5 (6-22); Blood Urea Nitrogen 15 mg/dL (9-20); Calcium 8.9 mg/dL (8.4-10.2); Carbon Dioxide 23 mmol/L (22-32); Chloride 108 mmol/L (98-107); Cholesterol 105 mg/dL (140-199); Estimated Glomerular Filt Rate > 60 mL/min (>60); Glucose 164 mg/dL (80-110); HDL Cholesterol 37 mg/dL (40-60); HEMOLYSIS < 15 (0-50); LDL Cholesterol Calculated 47 mg/dL (<100); Potassium 3.8 mmol/L (3.4-5.1); Sodium 138 mmol/L (137-145); Triglycerides 104 mg/dL (35-150)
[2024-07-28 09:32] LABS: Prostate Specific Antigen Scrn 0.557 ng/mL (0.1-4.0)
[2024-07-28 10:46] LABS: Creatinine Urine Random 87.68 mg/dL
[2024-07-28 10:58] LABS: Microalbumin Urine Random < 0.6 mg/dL (0-1.6)
== END ==
LOC: LAB 07:47
PROVIDERS: PCP Family Medicine; Referring Provider Family Medicine; Visit Provider Family Medicine
DX: Z13.228 Encounter for screening for other metabolic disorders (principal); Z12.5 Encounter for screening for malignant neoplasm of prostate; E11.9 Type 2 diabetes mellitus without complications; I10 Essential (primary) hypertension; E78.1 Pure hyperglyceridemia
CPT/HCPCS: 36415; 80048; 80061; 82043; 82570; 83036; G0103

== ENCOUNTER → 2024-08-20 07:45 | Outpatient (CLI) | payer OTHER, SELFPAY ==
--- NOTE | 2024-08-20 08:00 | DI.CT.S_ITS ---
PROCEDURE: CT LUNG LOW DOSE SCREENING INDICATIONS: 45 year smoking/tobacco use hx TECHNIQUE: Noncontrast 2.0-2.5 mm thick sections acquired from the pulmonary apices to the posterior costophrenic angles. 7 mm thick axial MIP, and 5 mm coronal and sagittal reformats were then acquired. For radiation dose reduction, the following was used: automated exposure control, adjustment of mA and/or kV according to patient size. COMPARISON: None. FINDINGS: Image quality: Diagnostic. Lower Neck: No enlarged lymph nodes. Thyroid: No thyroid nodules which require sonographic follow up, per consensus guidelines. Axillae: No enlarged lymph nodes. Chest Wall: Unremarkable. Bones: No suspicious osseous lesion. Lungs and Pleura: No pneumothorax or pleural effusions. No consolidation or suspicious nodules. Heart: Heart size is normal. No pericardial effusion. Thoracic Vessels: The aorta and pulmonary arteries demonstrate normal size. Mediastinum and Stephy: No enlarged lymph nodes. Esophagus: No wall thickening. No hiatal hernia. Upper Abdomen: Visualized upper abdomen solid organs and bowel loops appear normal. IMPRESSION: No suspicious pulmonary nodules. LUNG-RADS 1; continued annual screening, if eligible. Clinically Significant Non-pulmonary Findings: None. Dictated by: London Rodas M.D. on 08/20/2024 at 17:38 Approved by: London Rodas M.D. on 08/20/2024 at 17:41
== END ==
PROVIDERS: PCP Family Medicine; Referring Provider Family Medicine; Visit Provider Family Medicine
DX: F17.200 Nicotine dependence, unspecified, uncomplicated (principal); Z12.2 Encounter for screening for malignant neoplasm of respiratory organs
CPT/HCPCS: 71271

== ENCOUNTER 2024-10-25 10:17 | Day surgery (SDC) | payer OTHER, SELFPAY ==
--- NOTE | 2024-10-25 | PATH_ITS ---
[facility] Accession Number: [id number] No. of containers..01 Tissue . 01 Material submitted: . rectum - RECTAL POLYP . 01 Diagnosis: RECTAL POLYP, BIOPSY: Hyperplastic polyp(s). MRV 10/29/2024 1215 Local . 01 Electronically signed: . Mabel Craig MD, Pathologist NPI- [id number] . 01 Gross description: . Received in formalin labeled with two patient identifiers and designated rectal polyp, and consists of a 0.7 x 0.3 x 0.2 cm dunham flattened polypoid tissue which is inked, bisected, and entirely submitted in cassette A1. ([id number]) /STEVE 10/26/2024 0853 Local . 01 Pathologist provided ICD-10: D12.8 . 01 CPT . 463134 Specimen Comment: A courtesy copy of this report has been sent to [phone] Performed at: [address] [facility] [address], [place], [place] [id number] MD Nahid Jamil MD Phone: [phone]
[2024-10-25 11:27] VITALS: BP 96/56; PULSE 63; RESP 16; TEMP 36.8; O2SAT 98
[2024-10-25 11:31] VITALS: BP 116/80; PULSE 75; RESP 18; O2SAT 95
[2024-10-25 11:37] VITALS: BP 142/80; PULSE 66; RESP 18; TEMP 36.4; O2SAT 98
--- NOTE | 2024-10-25 11:59 | PM.HP.1 ---
History of Present Illness History of Present Illness Date Patient Seen: 10/25/24 Time Patient Seen: 11:59 Chief complaint: Colonoscopy Narrative: Jalil is a 64-year-old man here for colonoscopy. He had a colonoscopy with Dr. Dowling about 5 years ago and polyps were removed. There were no adenomatous polyps. No family history of colon cancer. [facility] Surgical History Status post colonoscopy Family History Father Age: 95 Type II diabetes mellitus Social History household members: none Smoking Status: Current every day smoker Tobacco: How many years used: 45 alcohol intake: never substance use type: does not use Meds Home Medications and Allergies Home Medications Medication Instructions Recorded Confirmed Type omega 5-yim-rar-fish oil 1,000 mg 1,000 mg PO DAILY ##0 05/21/11 10/25/24 History (120 mg-180 mg) capsule (Fish Oil) aspirin 81 mg tablet,delayed 81 mg PO DAILY 10/16/18 10/25/24 History release (Adult Aspirin Regimen) multivitamin 1 tab PO DAILY 10/16/18 07/27/24 History losartan 50 mg tablet 50 mg PO DAILY #90 tabs 03/12/24 10/25/24 Rx atorvastatin 20 mg tablet 20 mg PO BEDTIME #60 tabs 07/28/24 10/25/24 Rx sildenafil (pulm.hypertension) 20 20 mg PO DAILY PRN sexual activity 10/25/24 History mg tablet (Revatio) Allergies Allergy/AdvReac Type Severity Reaction Status Date / Time No Known Drug Allergies Allergy Verified 07/27/24 08:02 Exam Vital Signs (past 8 hours): - 10/25/24 11:27 10/25/24 11:31 10/25/24 11:37 Temperature 98.3 F 97.6 F Pulse Rate 63 75 66 Respiratory Rate 16 18 18 Blood Pressure 96/56 L 116/80 142/80 H Pulse Oximetry 98 95 98 Oxygen Delivery Method Room Air Room Air Room Air Oxygen Delivery Method Room Air Const General: No acute distress Assessment & Plan Assessment and plan (1) History of colon polyps: Problem details: 04/2019 colonoscopy: Likely hyperplastic polyps at 30 cm. These were removed . Recommendations: Colonoscopy in 5 years. Status: Acute Plan Colonoscopy. If no adenomatous polyps he will be good for 10 years. Time-Based Coding :: [TOTAL MINUTES] spent with patient and on the chart (including review of chart, obtaining history, exam, reviewing outside data, placing orders, documenting exam and treatment plan, and counseling patient) on [DATE].
--- NOTE | 2024-10-25 12:25 | PM.OP.COLON ---
Operative Date/Time/Diagnoses Date of procedure: 10/25/24 Time of procedure: 12:25 Pre-op diagnosis: History of polyps Post-op diagnosis: same Procedure & Clinicians Study performed: Colonoscopy Same procedure as scheduled: Yes Surgeon: Solomon Schwartz Procedure Notes Procedure in detail: Surgeon: Solomon Schwartz MD Anesthesia: Renu Fatima CRNA Procedure: The patient was brought to the endoscopy suite, placed in left lateral decubitus position. The patient was connected to monitoring devices. A time-out was performed. Sedation was administered. Once the patient was adequately sedated, a digital rectal exam was performed and was normal. The scope was then inserted and advanced to the cecum where the appendiceal orifice was identified and photographed. The scope was then slowly withdrawn over greater than 6 minutes. The mucosa was thoroughly inspected. There was a 5 mm polyp in the rectum removed with a cold snare. The scope was retroflexed in the rectum. No other abnormalities were seen. The scope was straightened and removed. The patient was awakened and brought to recovery. Scope withdrawal time: 9 minutes Sedation time: 15 minutes EBL: 2 mL Findings: 5 mm rectal polyp Post-procedure Recommendations: Colonoscopy in 10 years Disposition: PACU
[2024-10-25 12:28] VITALS: BP 128/85; PULSE 69; RESP 16; TEMP 36.8; O2SAT 94
[2024-10-25 12:33] VITALS: BP 124/83; PULSE 66; RESP 17; O2SAT 94
[2024-10-25 12:36] VITALS: BP 137/70; PULSE 69; RESP 20; TEMP 36.8; O2SAT 94
== END 2024-10-25 12:46 | disposition home or self-care (01) ==
PROVIDERS: PCP Family Medicine; Referring Provider Surgery; Visit Provider Surgery
PROC: 0DJD8ZZ Inspection of Lower Intestinal Tract, Via Natural or Artificial Opening Endoscopic (ICD-10-PCS; CPT 45378; principal; 2024-10-25 11:30)
DX: Z12.11 Encounter for screening for malignant neoplasm of colon (principal); Z86.0100 Personal history of colon polyps, unspecified; D12.8 Benign neoplasm of rectum
CPT/HCPCS: 45385; J2405; J2704

== ENCOUNTER → 2025-09-25 06:44 | Outpatient (CLI) | payer OTHER, SELFPAY ==
[2025-09-25 08:21] LABS: Hemoglobin A1C% w Est Avg Glu 7.0 % (4.0-6.0)
[2025-09-25 08:33] LABS: Cholesterol 172 mg/dL (140-199); HDL Cholesterol 43 mg/dL (40-60); Triglycerides 168 mg/dL (35-150)
== END ==
PROVIDERS: PCP Family Medicine; Referring Provider Family Medicine; Visit Provider Family Medicine
DX: E11.9 Type 2 diabetes mellitus without complications (principal); I10 Essential (primary) hypertension
CPT/HCPCS: 36415; 80061; 83036

== ENCOUNTER → 2025-10-05 08:51 | Outpatient (CLI) | payer OTHER, SELFPAY | PROVIDERS: PCP Family Medicine; Referring Provider Family Medicine; Visit Provider Family Medicine | DX: E11.9 Type 2 diabetes mellitus without complications (principal); I10 Essential (primary) hypertension | CPT/HCPCS: 82043; 82570 ==